=== PATIENT | female | born 1990 | race Two or more races ===

== ENCOUNTER 2023-11-23 12:42 | Emergency (ER) | payer OTHER ==
[~2023-11-23] VITALS: Ht 162.6 cm; Wt 70.8 kg
[2023-11-23 16:44] LABS: PH,URINE 5.5 (5.0-8.0); URINE APPEARANCE Cloudy; URINE BILIRRUBIN Negative (NEGATIVE); URINE BLOOD Large; URINE COLOR Yellow; URINE GLUCOSE Negative (NEGATIVE); URINE LEUKOCYTE Moderate; URINE NITRATE Negative; URINE PROTEIN Negative (NEGATIVE); URINE UROBILINOGEN 0.2 E.U./dl
[2023-11-23 16:48] LABS: URINE BACTERIA 5054.9 uL (0.0-1933); URINE EPITHELIAL CELLS 104.5 uL (0.0-38.8); URINE RBC 14.6 uL (0.0-20.8); URINE WBC 148.5 uL (0.0-23.2)
[2023-11-23] MEDS ORDERED: CEPHALEXIN500 M1 PO (18:27)
== END 2023-11-23 19:08 | disposition home or self-care (01) ==
LOC: ER 12:43
PROVIDERS: Nurse Practitioner Family
DX: O23.41 Unspecified infection of urinary tract in pregnancy, first trimester (principal); R10.2 Pelvic and perineal pain; Z3A.01 Less than 8 weeks gestation of pregnancy

== ENCOUNTER 2024-01-11 11:07 | Outpatient (CLI) | payer OTHER ==
[~2024-01-11 11:07] MED LIST: CEPHALEXIN500 M1 PO
== END 2024-01-11 11:08 | disposition home or self-care (01) ==
LOC: PRENATAL 11:07
PROVIDERS: ATTEND Obstetrics & Gynecology Maternal & Fetal Medicine
DX: O36.80X0 Pregnancy with inconclusive fetal viability, not applicable or unspecified (principal); Z36.82 Encounter for antenatal screening for nuchal translucency; Z3A.11 11 weeks gestation of pregnancy